=== PATIENT | female | born 1950 | race Hispanic/Latino ===

== ENCOUNTER 2020-11-05 13:18 | Inpatient (IN) | payer OTHER ==
[~2020-11-05] VITALS: Ht 160 cm; Wt 83.0 kg
[2020-11-05 13:47] LABS: BASOPHILS % (AUTO) 0.5 % (0.0-5.0); EOSINOPHILS % (AUTO) 1.4 % (0.0-8.0); HEMATOCRIT 25.5 % (36-48); LYMPHOCYTES % (AUTO) 12.5 % (21.0-51.0); MEAN CORPUSCULAR HEMOGLOBIN 28.4 pg (27.0-33.0); MEAN CORPUSCULAR HGB CONC 33.3 g/dL (32.0-36.0); MEAN CORPUSCULAR VOLUME 85.3 fL (79-99); MONOCYTES % (AUTO) 4.6 % (3.0-13.0); NEUTROPHILS % (AUTO) 80.7 % (40.0-77.0); PLATELET COUNT (AUTO) 289 K/uL (130-400); RED BLOOD CELL COUNT(AUTO) 2.99 MIL/uL (4.00-5.50); RED CELL DISTRIBUTION WIDTH 14.3 % (11.0-15.5); WHITE BLOOD COUNT (AUTO) 7.9 K/uL (4.8-10.8)
[2020-11-05 14:13] LABS: APPEARANCE,URINE Clear (CLEAR); BILIRUBIN,URINE Negative (NEGATIVE); COLOR,URINE Yellow (YELLOW); GLUCOSE, URINE (UA) TRACE mg/dL (NEGATIVE); KETONES,URINE Negative (NEGATIVE); LEUKOCYTE ESTERASE ,URINE Negative (NEGATIVE); NITRATE,URINE Negative (NEGATIVE); OCCULT BLOOD,URINE Negative (NEGATIVE); PROTEIN,URINE 300 mg/dL (NEGATIVE); UROBILINOGEN,URINE 0.2 mg/dL (0.2-1.0)
[2020-11-05 14:16] LABS: CREATININE 2.5 mg/dL (0.5-1.5); POTASSIUM 4.3 mmol/L (3.5-5.1)
[2020-11-05 14:20] LABS: INR 1.08 (0.85-1.15); PROTHROMBIN TIME 11.7 SEC (9.6-11.6)
[2020-11-05 14:21] LABS: ALBUMIN 2.9 g/dL (3.5-5.0); BILIRUBIN,TOTAL 0.2 mg/dL (0.2-1.0); PARTIAL THROMBOPLASTIN TIME 27.3 SEC (26.3-35.5); TOTAL PROTEIN, SERUM 6.6 g/dL (6.0-8.3)
[2020-11-05 14:23] LABS: BACTERIA,URINE Rare /HPF (None Seen); MUCUS,URINE Few LPF (None Seen); RBC,URINE 0-1 /HPF (0-1); SQUAMOUS EPITHELIAL CELL,UR Few /HPF (0-2)
[2020-11-05] MEDS ORDERED: MECLIZINE HCL 25 MG TABLET ONE (14:25)
[2020-11-05] MEDS ORDERED: CEFTRIAXONE 1G VIAL ONE (15:14)
[2020-11-05] MEDS ORDERED: AZITHROMYCIN 250 MG TABLET PO ONE (15:14)
[2020-11-05] MEDS ORDERED: LORAZEPAM 2 MG/ML 1 ML VIAL ONE (15:15)
[2020-11-05 15:33] LABS: ABG BASE EXCESS -5.6 mmol/L (-2.0-3.0); ABG HCO3 18.8 mmol/L (21.0-28.0); ABG OXYGEN SATURATION 86.4 % (95.0-99.0); ABG PCO2 34 mmHg (32-45)
[2020-11-06 05:05] LABS: BASOPHILS % (AUTO) 0.5 % (0.0-5.0); EOSINOPHILS % (AUTO) 2.3 % (0.0-8.0); HEMATOCRIT 23.3 % (36-48); LYMPHOCYTES % (AUTO) 18.7 % (21.0-51.0); MEAN CORPUSCULAR HEMOGLOBIN 27.9 pg (27.0-33.0); MEAN CORPUSCULAR HGB CONC 32.6 g/dL (32.0-36.0); MEAN CORPUSCULAR VOLUME 85.7 fL (79-99); MONOCYTES % (AUTO) 8.1 % (3.0-13.0); NEUTROPHILS % (AUTO) 70.1 % (40.0-77.0); PLATELET COUNT (AUTO) 299 K/uL (130-400); RED BLOOD CELL COUNT(AUTO) 2.72 MIL/uL (4.00-5.50); RED CELL DISTRIBUTION WIDTH 14.3 % (11.0-15.5); WHITE BLOOD COUNT (AUTO) 6.5 K/uL (4.8-10.8)
[2020-11-06 05:32] LABS: % IRON SATURATION 12.7 % (22-44)
[2020-11-06 06:07] LABS: CARBON DIOXIDE 23 mmol/L (21-32); CHLORIDE 106 mmol/L (101-111); CREATININE 2.5 mg/dL (0.5-1.5); GLOMERULAR FILTR. RATE CALC 20 mL/min (>60); GLUCOSE,RANDOM 181 mg/dL (70-105); POTASSIUM 3.8 mmol/L (3.5-5.1); SODIUM SERUM 140 mmol/L (136-145); UREA NITROGEN, BLOOD 47 mg/dL (7-18)
[2020-11-06] MEDS ORDERED: FAMOTIDINE 20MG VIAL IV ONE (08:29)
[2020-11-06] MEDS ORDERED: PANTOPRAZOLE 40 MG/VIAL IVP SCH (09:00)
[2020-11-06] MEDS ORDERED: FAMOTIDINE 20MG VIAL IV SCH (09:00)
[2020-11-06] MEDS ORDERED: PANTOPRAZOLE 40 MG/VIAL ONE (10:12)
[2020-11-06] MEDS ORDERED: HYDRALAZINE 20MG/ML VIAL IV PRN (10:30)
[2020-11-06] MEDS ORDERED: FUROSEMIDE 40MG VIAL ONE (10:45)
[2020-11-06] MEDS ORDERED: FUROSEMIDE 40MG VIAL IV SCH ×2 (10:45→15:00)
[2020-11-06] MEDS ORDERED: NICARDIPINE 25MG INJ IV ONE (10:55)
[2020-11-06 11:04] LABS: BASOPHILS % (AUTO) 0.6 % (0.0-5.0); EOSINOPHILS % (AUTO) 2.5 % (0.0-8.0); HEMATOCRIT 31.6 % (36-48); LYMPHOCYTES % (AUTO) 13.9 % (21.0-51.0); MEAN CORPUSCULAR HEMOGLOBIN 27.7 pg (27.0-33.0); MEAN CORPUSCULAR VOLUME 86.8 fL (79-99); MONOCYTES % (AUTO) 5.4 % (3.0-13.0); NEUTROPHILS % (AUTO) 76.6 % (40.0-77.0); PLATELET COUNT (AUTO) 374 K/uL (130-400); RED BLOOD CELL COUNT(AUTO) 3.64 MIL/uL (4.00-5.50); RED CELL DISTRIBUTION WIDTH 14.3 % (11.0-15.5); WHITE BLOOD COUNT (AUTO) 8.8 K/uL (4.8-10.8)
[2020-11-06] MEDS ORDERED: MORPHINE 4 MG SYG ONE (11:11)
[2020-11-06] MEDS ORDERED: MIDAZOLAM HCL 1 MG/ML 2ML VIAL ONE (11:11)
[2020-11-06 11:13] LABS: CREATININE 2.4 mg/dL (0.5-1.5); POTASSIUM 4.5 mmol/L (3.5-5.1)
[2020-11-06 11:17] LABS: BILIRUBIN,TOTAL 0.2 mg/dL (0.2-1.0); TOTAL PROTEIN, SERUM 7.3 g/dL (6.0-8.3)
[2020-11-06] MEDS ORDERED: FENTANYL CITRATE PF 0.05 MG/ML 1,000 MCG in 0.9%NACL 100ML 100 ML IVPB SCH (11:17)
[2020-11-06] MEDS ORDERED: PROPOFOL 1000 MG/100 ML 100 ML IV STA (11:17)
[2020-11-06] MEDS ORDERED: PROPOFOL 1000 MG/100 ML 100 ML IV ONE ×4 (11:24→22:35)
[2020-11-06] MEDS ORDERED: NICARDIPINE 25MG INJ 50 MG in 0.9% NACL 250ML 230 ML IV SCH (11:30)
[2020-11-06] MEDS ORDERED: FENTANYL 2500MCG+NS 250ML 250 ML IV ONE (11:38)
[2020-11-06] MEDS ORDERED: CEFEPIME HCL 2 GM VIAL IVP SCH (11:45)
[2020-11-06] MEDS ORDERED: PHARMACY COMMUNICATION MISC SCH (11:45)
[2020-11-06] MEDS: LINEZOLID 600 MG/ISO-OSM 300 ML IV SCH ×2 (11:45→23:45)
[2020-11-06] MEDS ORDERED: NOREPINEPHRINE BITARTRATE 1 MG/1 ML ML IV ONE (11:53)
[2020-11-06] MEDS ORDERED: 0.9% NACL 250ML 250 ML IV ONE (11:54)
[2020-11-06] MEDS ORDERED: NOREPINEPHRIN 4MG/NS 250ML 250 ML IV SCH (12:00)
[2020-11-06 12:23] LABS: ABG BASE EXCESS -8.2 mmol/L (-2.0-3.0); ABG HCO3 19.4 mmol/L (21.0-28.0); ABG OXYGEN SATURATION 93.9 % (95.0-99.0); ABG PCO2 48 mmHg (32-45)
[2020-11-06 14:00] LABS: ABG BASE EXCESS -7.3 mmol/L (-2.0-3.0); ABG HCO3 18.7 mmol/L (21.0-28.0); ABG OXYGEN SATURATION 99.3 % (95.0-99.0); ABG PCO2 40 mmHg (32-45)
[2020-11-06] MEDS ORDERED: CEFEPIME HCL 2 GM VIAL ONE (14:14)
[2020-11-06] MEDS ORDERED: CEFTRIAXONE 1G VIAL IVP SCH (15:00)
[2020-11-06] MEDS: AZITHROMYCIN 500MG+NS 250ML 250 ML IV SCH (15:00)
[2020-11-06] MEDS: ZOSYN 3.375GM+NS 50ML 50 ML IV SCH (15:00)
[2020-11-06] MEDS ORDERED: ZOSYN 3.375GM+NS 50ML 50 ML IV ONE (16:01)
[2020-11-06 17:50] LABS: HEMOGLOBIN A1C 8.2 % (4.0-6.0)
[2020-11-06] MEDS: ATORVASTATIN 20 MG TABLET GT SCH (21:00)
[2020-11-06] MEDS ORDERED: ATORVASTATIN 20 MG TABLET ONE (23:49)
[2020-11-07] MEDS ORDERED: PROPOFOL 1000 MG/100 ML 100 ML IV ONE ×7 (01:43→23:44)
[2020-11-07] MEDS: ZOSYN 3.375GM+NS 50ML 50 ML IV SCH ×2 (03:00→15:00)
[2020-11-07 05:07] LABS: ABG BASE EXCESS -3.1 mmol/L (-2.0-3.0); ABG HCO3 19.7 mmol/L (21.0-28.0); ABG OXYGEN SATURATION 99.5 % (95.0-99.0); ABG PCO2 30 mmHg (32-45)
[2020-11-07 07:04] LABS: BASOPHILS % (AUTO) 0.5 % (0.0-5.0); EOSINOPHILS % (AUTO) 3.2 % (0.0-8.0); HEMATOCRIT 23.5 % (36-48); MEAN CORPUSCULAR HEMOGLOBIN 28.7 pg (27.0-33.0); MEAN CORPUSCULAR HGB CONC 33.2 g/dL (32.0-36.0); MEAN CORPUSCULAR VOLUME 86.4 fL (79-99); MONOCYTES % (AUTO) 7.6 % (3.0-13.0); NEUTROPHILS % (AUTO) 70.3 % (40.0-77.0); PLATELET COUNT (AUTO) 300 K/uL (130-400); RED BLOOD CELL COUNT(AUTO) 2.72 MIL/uL (4.00-5.50); RED CELL DISTRIBUTION WIDTH 14.4 % (11.0-15.5); WHITE BLOOD COUNT (AUTO) 8.6 K/uL (4.8-10.8)
[2020-11-07 07:24] LABS: ALBUMIN 2.3 g/dL (3.5-5.0); BILIRUBIN,TOTAL 0.2 mg/dL (0.2-1.0); CREATININE 2.5 mg/dL (0.5-1.5); POTASSIUM 3.8 mmol/L (3.5-5.1); TOTAL PROTEIN, SERUM 5.5 g/dL (6.0-8.3)
[2020-11-07] MEDS: ASPIRIN 81MG CHEW TAB PO SCH (09:00)
[2020-11-07] MEDS ORDERED: FUROSEMIDE 20MG VIAL IV SCH (10:30)
[2020-11-07] MEDS ORDERED: ASPIRIN 81MG CHEW TAB ONE (11:39)
[2020-11-07] MEDS: LINEZOLID 600 MG/ISO-OSM 300 ML IV SCH ×2 (11:45→23:45)
[2020-11-07] MEDS: AZITHROMYCIN 500MG+NS 250ML 250 ML IV SCH (15:00)
[2020-11-07] MEDS ORDERED: ZOSYN 3.375GM+NS 50ML 50 ML IV ONE (15:01)
[2020-11-07] MEDS ORDERED: AZITHROMYCIN 500MG+NS 250ML 250 ML IV ONE (15:02)
[2020-11-07] MEDS ORDERED: DEXMEDETOMIDINE HCL 400 MCG in 0.9%NACL 100ML 100 ML IV SCH (20:30)
[2020-11-07] MEDS ORDERED: PHARMACY COMMUNICATION MISC SCH (20:30)
[2020-11-07] MEDS: ATORVASTATIN 20 MG TABLET GT SCH (21:00)
[2020-11-07] MEDS ORDERED: BUMETANIDE 2.5MG/10ML VIAL 80 ML IV SCH (21:00)
[2020-11-07] MEDS ORDERED: FENTANYL 2500MCG+NS 250ML 250 ML IV SCH (21:00)
[2020-11-07] MEDS ORDERED: FUROSEMIDE 20MG VIAL ONE (21:35)
[2020-11-07] MEDS ORDERED: ATORVASTATIN 20 MG TABLET ONE (21:35)
[2020-11-07] MEDS ORDERED: NOREPINEPHRIN 4MG/NS 250ML 250 ML IV ONE (22:07)
[2020-11-08] VITALS (16 sets, daily range): BP systolic 141–175; BP diastolic 51–74
[2020-11-08] MEDS ORDERED: FENTANYL 2500MCG+NS 250ML 250 ML IV ONE (00:37)
[2020-11-08] MEDS: ZOSYN 3.375GM+NS 50ML 50 ML IV SCH ×2 (03:00→15:00)
[2020-11-08] MEDS ORDERED: ZOSYN 3.375GM+NS 50ML 50 ML IV ONE (03:10)
[2020-11-08] MEDS ORDERED: PROPOFOL 1000 MG/100 ML 100 ML IV ONE ×4 (03:12→14:05)
[2020-11-08 05:25] LABS: ABG BASE EXCESS -4.4 mmol/L (-2.0-3.0); ABG HCO3 20.1 mmol/L (21.0-28.0); ABG OXYGEN SATURATION 98.5 % (95.0-99.0); ABG PCO2 36 mmHg (32-45)
[2020-11-08 06:35] LABS: BASOPHILS % (AUTO) 0.4 % (0.0-5.0); HEMATOCRIT 25.1 % (36-48); MEAN CORPUSCULAR HEMOGLOBIN 28.4 pg (27.0-33.0); MEAN CORPUSCULAR HGB CONC 32.7 g/dL (32.0-36.0); MEAN CORPUSCULAR VOLUME 86.9 fL (79-99); MONOCYTES % (AUTO) 7.3 % (3.0-13.0); PLATELET COUNT (AUTO) 319 K/uL (130-400); RED BLOOD CELL COUNT(AUTO) 2.89 MIL/uL (4.00-5.50); RED CELL DISTRIBUTION WIDTH 14.4 % (11.0-15.5); WHITE BLOOD COUNT (AUTO) 9.7 K/uL (4.8-10.8)
[2020-11-08 06:51] LABS: CREATININE 2.5 mg/dL (0.5-1.5); MAGNESIUM 1.9 mg/dL (1.80-2.40); POTASSIUM 3.8 mmol/L (3.5-5.1)
[2020-11-08] MEDS ORDERED: MAGNESIUM 2GM PREMIX 50ML 50 ML IV PRN (07:30)
[2020-11-08] MEDS ORDERED: POTASSIUM CHLORIDE 10MEQ/100ML 100 ML IV PRN (08:45)
[2020-11-08] MEDS: PANTOPRAZOLE 40 MG/VIAL IVP SCH (09:00)
[2020-11-08] MEDS: ASPIRIN 81MG CHEW TAB PO SCH (09:00)
[2020-11-08] MEDS ORDERED: FAMOTIDINE 20MG VIAL IV SCH (09:00)
[2020-11-08] MEDS ORDERED: LABETALOL 20MG SYG IV ONE (10:28)
[2020-11-08] MEDS: INSULIN HUMULIN R 100 UNIT/ML 3ML SQ SCH ×3 (11:38→21:00)
[2020-11-08] MEDS: LINEZOLID 600 MG/ISO-OSM 300 ML IV SCH (11:45)
[2020-11-08] MEDS: AZITHROMYCIN 500MG+NS 250ML 250 ML IV SCH (15:00)
[2020-11-08] MEDS: PROPOFOL 1000 MG/100 ML 100 ML IV SCH ×2 (17:31→21:00)
[2020-11-08] MEDS: LABETALOL 20MG VIAL IV PRN (17:58)
[2020-11-09] VITALS (25 sets, daily range): BP systolic 133–209; BP diastolic 43–111
[2020-11-09] MEDS: LINEZOLID 600 MG/ISO-OSM 300 ML IV SCH
[2020-11-09] MEDS: ZOSYN 3.375GM+NS 50ML 50 ML IV SCH (03:09)
[2020-11-09] MEDS: PROPOFOL 1000 MG/100 ML 100 ML IV SCH ×2 (03:13→06:32)
[2020-11-09 03:48] LABS: BASOPHILS % (AUTO) 0.2 % (0.0-5.0); EOSINOPHILS % (AUTO) 3.9 % (0.0-8.0); HEMATOCRIT 26.7 % (36-48); LYMPHOCYTES % (AUTO) 13.5 % (21.0-51.0); MEAN CORPUSCULAR HEMOGLOBIN 27.9 pg (27.0-33.0); MEAN CORPUSCULAR HGB CONC 32.6 g/dL (32.0-36.0); MEAN CORPUSCULAR VOLUME 85.6 fL (79-99); MONOCYTES % (AUTO) 7.8 % (3.0-13.0); NEUTROPHILS % (AUTO) 74.4 % (40.0-77.0); PLATELET COUNT (AUTO) 315 K/uL (130-400); RED BLOOD CELL COUNT(AUTO) 3.12 MIL/uL (4.00-5.50); RED CELL DISTRIBUTION WIDTH 14.4 % (11.0-15.5); WHITE BLOOD COUNT (AUTO) 8.5 K/uL (4.8-10.8)
[2020-11-09 04:01] LABS: CREATININE 2.5 mg/dL (0.5-1.5); MAGNESIUM 2.2 mg/dL (1.80-2.40); PHOSPHORUS 5.7 mg/dL (2.5-4.9); POTASSIUM 3.4 mmol/L (3.5-5.1)
[2020-11-09] MEDS: INSULIN HUMULIN R 100 UNIT/ML 3ML SQ SCH ×3 (06:31→21:36)
[2020-11-09] MEDS ORDERED: INSULIN GLARGINE 100 UNITS/ML 10 ML VIAL SQ ONE ×2 (09:00→14:00)
[2020-11-09] MEDS ORDERED: INSULIN GLARGINE 100 UNITS/ML 10 ML VIAL SQ SCH (09:00)
[2020-11-09] MEDS: PANTOPRAZOLE 40 MG/VIAL IVP SCH (09:15)
[2020-11-09] MEDS: LABETALOL 20MG VIAL IV PRN (09:16)
[2020-11-09] MEDS: CEFTRIAXONE 1G VIAL IVP SCH (10:02)
[2020-11-09] MEDS ORDERED: NICARDIPINE 25MG INJ 25 MG in 0.9% NACL 250ML 240 ML IV SCH ×2 (11:15→12:15)
[2020-11-09] MEDS: POTASSIUM CHLORIDE 10MEQ/100ML 100 ML IV PRN (11:16)
[2020-11-09] MEDS ORDERED: NICARDIPINE 25MG INJ 100 MG in 0.9%NACL 100ML 60 ML IV SCH (11:45)
[2020-11-09] MEDS ORDERED: NICARDIPINE 25MG INJ IV ONE (11:46)
[2020-11-09] MEDS ORDERED: 0.9% NACL 250ML 250 ML IV ONE (11:48)
[2020-11-09] MEDS: ASPIRIN 81MG CHEW TAB PO SCH (12:28)
[2020-11-09] MEDS: AZITHROMYCIN 500MG+NS 250ML 250 ML IV SCH (15:00)
[2020-11-09 17:12] LABS: APPEARANCE,URINE CLEAR (CLEAR); BILIRUBIN,URINE NEGATIVE (NEGATIVE); COLOR,URINE YELLOW (YELLOW); GLUCOSE, URINE (UA) 100 mg/dL (NEGATIVE); KETONES,URINE NEGATIVE (NEGATIVE); LEUKOCYTE ESTERASE ,URINE NEGATIVE (NEGATIVE); NITRATE,URINE NEGATIVE (NEGATIVE); OCCULT BLOOD,URINE NEGATIVE (NEGATIVE); PROTEIN,URINE >=300 mg/dL (NEGATIVE); UROBILINOGEN,URINE 0.2 mg/dL (0.2-1.0)
[2020-11-09 17:15] LABS: BACTERIA,URINE Few /HPF (None Seen); RBC,URINE 0-1 /HPF (0-1)
[2020-11-09 17:16] LABS: SQUAMOUS EPITHELIAL CELL,UR Rare /HPF (0-2)
[2020-11-09] MEDS: ATORVASTATIN 20 MG TABLET GT SCH ×2 (21:00)
[2020-11-09] MEDS: FUROSEMIDE 40MG VIAL IV SCH (21:30)
[2020-11-10] VITALS (23 sets, daily range): BP systolic 127–189; BP diastolic 53–104
[2020-11-10 03:37] LABS: BASOPHILS % (AUTO) 0.2 % (0.0-5.0); EOSINOPHILS % (AUTO) 1.4 % (0.0-8.0); HEMATOCRIT 26.3 % (36-48); LYMPHOCYTES % (AUTO) 10.4 % (21.0-51.0); MEAN CORPUSCULAR HEMOGLOBIN 27.6 pg (27.0-33.0); MEAN CORPUSCULAR HGB CONC 32.3 g/dL (32.0-36.0); MEAN CORPUSCULAR VOLUME 85.4 fL (79-99); MONOCYTES % (AUTO) 7.4 % (3.0-13.0); NEUTROPHILS % (AUTO) 80.3 % (40.0-77.0); PLATELET COUNT (AUTO) 375 K/uL (130-400); RED BLOOD CELL COUNT(AUTO) 3.08 MIL/uL (4.00-5.50); RED CELL DISTRIBUTION WIDTH 14.3 % (11.0-15.5); WHITE BLOOD COUNT (AUTO) 9.8 K/uL (4.8-10.8)
[2020-11-10 03:44] LABS: ABG BASE EXCESS -0.4 mmol/L (-2.0-3.0); ABG HCO3 23.7 mmol/L (21.0-28.0); ABG PCO2 37 mmHg (32-45)
[2020-11-10 03:54] LABS: ALBUMIN 2.1 g/dL (3.5-5.0); BILIRUBIN,TOTAL 0.4 mg/dL (0.2-1.0); CREATININE 2.6 mg/dL (0.5-1.5); MAGNESIUM 2.7 mg/dL (1.80-2.40); PHOSPHORUS 6.1 mg/dL (2.5-4.9); POTASSIUM 3.3 mmol/L (3.5-5.1); TOTAL PROTEIN, SERUM 6.6 g/dL (6.0-8.3)
[2020-11-10] MEDS: POTASSIUM CHLORIDE 10MEQ/100ML 100 ML IV PRN (05:27)
[2020-11-10] MEDS ORDERED: LIDOCAINE HCL-MPF 1% 2ML VIAL ONE (05:33)
[2020-11-10] MEDS ORDERED: LIDOCAINE HCL-MPF 1% 2ML VIAL IV PRN (06:00)
[2020-11-10] MEDS: INSULIN HUMULIN R 100 UNIT/ML 3ML SQ SCH ×4 (06:51→21:24)
[2020-11-10] MEDS ORDERED: HYDRALAZINE 20MG/ML VIAL IV PRN (09:45)
[2020-11-10] MEDS: CEFTRIAXONE 1G VIAL IVP SCH (10:26)
[2020-11-10] MEDS: ASPIRIN 81MG CHEW TAB PO SCH (10:27)
[2020-11-10] MEDS: FUROSEMIDE 40MG VIAL IV SCH (10:27)
[2020-11-10] MEDS: PANTOPRAZOLE 40 MG TAB DR PO SCH (10:33)
[2020-11-10] MEDS: AZITHROMYCIN 500MG+NS 250ML 250 ML IV SCH (15:00)
[2020-11-10] MEDS ORDERED: CARV25TA PO (16:57)
[2020-11-10] MEDS ORDERED: INSREG SQ (16:57)
[2020-11-10] MEDS ORDERED: INSU100V12 SQ ×2 (16:57)
[2020-11-10] MEDS ORDERED: AEC81 PO (16:57)
[2020-11-10] MEDS ORDERED: NIMO30CA PO (16:57)
[2020-11-10] MEDS ORDERED: LOSA100T58 PO (16:57)
[2020-11-10] MEDS ORDERED: HYDR-4154 PO (16:57)
[2020-11-10] MEDS ORDERED: AMLODIPINE 5 MG TAB PO SCH (18:35)
[2020-11-10] MEDS ORDERED: ACETAMINOPHEN 500 MG TABLET PO PRN (20:45)
[2020-11-10] MEDS ORDERED: TEMAZEPAM 7.5 MG CAPSULE PO PRN (20:45)
[2020-11-10] MEDS: CARVEDILOL 6.25 MG TABLET PO SCH (21:18)
[2020-11-10] MEDS: ATORVASTATIN 20 MG TABLET GT SCH (21:18)
[2020-11-11] VITALS (28 sets, daily range): BP systolic 122–203; BP diastolic 43–90
[2020-11-11 04:19] LABS: CREATININE 2.3 mg/dL (0.5-1.5); MAGNESIUM 2.1 mg/dL (1.80-2.40); POTASSIUM 3.2 mmol/L (3.5-5.1)
[2020-11-11] MEDS: POTASSIUM CHLORIDE 10MEQ/100ML 100 ML IV PRN (04:40)
[2020-11-11 05:22] LABS: BASOPHILS % (AUTO) 0.2 % (0.0-5.0); EOSINOPHILS % (AUTO) 2.2 % (0.0-8.0); HEMATOCRIT 27.1 % (36-48); LYMPHOCYTES % (AUTO) 13.2 % (21.0-51.0); MEAN CORPUSCULAR HEMOGLOBIN 27.7 pg (27.0-33.0); MEAN CORPUSCULAR HGB CONC 32.1 g/dL (32.0-36.0); MEAN CORPUSCULAR VOLUME 86.3 fL (79-99); MONOCYTES % (AUTO) 6.7 % (3.0-13.0); NEUTROPHILS % (AUTO) 77.3 % (40.0-77.0); PLATELET COUNT (AUTO) 392 K/uL (130-400); RED BLOOD CELL COUNT(AUTO) 3.14 MIL/uL (4.00-5.50); RED CELL DISTRIBUTION WIDTH 14.4 % (11.0-15.5); WHITE BLOOD COUNT (AUTO) 8.5 K/uL (4.8-10.8)
[2020-11-11] MEDS: INSULIN HUMULIN R 100 UNIT/ML 3ML SQ SCH ×4 (06:54→20:29)
[2020-11-11] MEDS: PANTOPRAZOLE 40 MG TAB DR PO SCH (09:20)
[2020-11-11] MEDS: ASPIRIN 81MG CHEW TAB PO SCH (09:21)
[2020-11-11] MEDS: CARVEDILOL 6.25 MG TABLET PO SCH (09:25)
[2020-11-11] MEDS: LOSARTAN 50 MG TABLET PO SCH (09:26)
[2020-11-11] MEDS: AMLODIPINE 5 MG TAB PO SCH (09:26)
[2020-11-11] MEDS: CEFTRIAXONE 1G VIAL IVP SCH (09:26)
[2020-11-11] MEDS ORDERED: LIDOCAINE HCL-MPF 1% 2ML VIAL IV PRN (11:15)
[2020-11-11] MEDS ORDERED: POTASSIUM CHLORIDE 20MEQ/100ML 100 ML IV PRN (11:15)
[2020-11-11] MEDS ORDERED: POTASSIUM CHLORIDE 10% ELIXIR 20 MEQ/15 ML UDCUP PO PRN (11:15)
[2020-11-11] MEDS: LABETALOL 20MG VIAL IV PRN ×2 (16:01→17:26)
[2020-11-11] MEDS: ATORVASTATIN 20 MG TABLET GT SCH (20:25)
[2020-11-11] MEDS: CARVEDILOL 25 MG TABLET PO SCH (20:26)
[2020-11-11] MEDS ORDERED: CARVEDILOL 6.25 MG TABLET PO SCH (21:00)
[2020-11-12] VITALS (10 sets, daily range): BP systolic 100–187; BP diastolic 43–96
[2020-11-12 03:51] LABS: ALBUMIN 2.1 g/dL (3.5-5.0); BILIRUBIN,TOTAL 0.3 mg/dL (0.2-1.0); CREATININE 1.9 mg/dL (0.5-1.5); POTASSIUM 3.3 mmol/L (3.5-5.1); TOTAL PROTEIN, SERUM 6.4 g/dL (6.0-8.3)
[2020-11-12] MEDS: KCL 20 MEQ ERTAB PO PRN ×3 (05:24→13:57)
[2020-11-12] MEDS: INSULIN HUMULIN R 100 UNIT/ML 3ML SQ SCH ×4 (06:15→20:06)
[2020-11-12 06:27] LABS: BASOPHILS % (AUTO) 0.4 % (0.0-5.0); LYMPHOCYTES % (AUTO) 14.5 % (21.0-51.0); MEAN CORPUSCULAR HEMOGLOBIN 27.3 pg (27.0-33.0); MEAN CORPUSCULAR HGB CONC 31.2 g/dL (32.0-36.0); MEAN CORPUSCULAR VOLUME 87.5 fL (79-99); MONOCYTES % (AUTO) 6.5 % (3.0-13.0); NEUTROPHILS % (AUTO) 72.3 % (40.0-77.0); PLATELET COUNT (AUTO) 395 K/uL (130-400); RED BLOOD CELL COUNT(AUTO) 2.97 MIL/uL (4.00-5.50); RED CELL DISTRIBUTION WIDTH 13.8 % (11.0-15.5); WHITE BLOOD COUNT (AUTO) 9.5 K/uL (4.8-10.8)
[2020-11-12] MEDS: LOSARTAN 50 MG TABLET PO SCH (09:00)
[2020-11-12] MEDS: ASPIRIN 81MG CHEW TAB PO SCH (09:00)
[2020-11-12] MEDS: AMLODIPINE 5 MG TAB PO SCH (09:33)
[2020-11-12] MEDS: PANTOPRAZOLE 40 MG TAB DR PO SCH (09:34)
[2020-11-12] MEDS: CARVEDILOL 25 MG TABLET PO SCH (09:34)
[2020-11-12] MEDS: CEFDINIR 250MG/5ML 60ML BOTTLE PO SCH ×2 (12:51→20:03)
[2020-11-12] MEDS ORDERED: MINO2.5T3 PO (16:43)
[2020-11-12] MEDS: CARVEDILOL 12.5 MG TABLET PO SCH (19:49)
[2020-11-12] MEDS: ATORVASTATIN 20 MG TABLET GT SCH (19:50)
[2020-11-12] MEDS ORDERED: METOCLOPRAMIDE 10 MG/2 ML VIAL IVP SCH (23:30)
[2020-11-12] MEDS ORDERED: METOCLOPRAMIDE 10 MG/2 ML VIAL ONE (23:33)
[2020-11-12] MEDS: INSULIN GLARGINE 100 UNITS/ML 10 ML VIAL SQ SCH (23:52)
[2020-11-13 00:05] VITALS: BP 139/70
[2020-11-13 04:03] VITALS: BP 107/42
[2020-11-13] MEDS ORDERED: ONDANSETRON 4MG INJ IVP PRN (05:15)
[2020-11-13 05:50] LABS: BASOPHILS % (AUTO) 0.1 % (0.0-5.0); EOSINOPHILS % (AUTO) 2.7 % (0.0-8.0); HEMATOCRIT 26.4 % (36-48); LYMPHOCYTES % (AUTO) 4.5 % (21.0-51.0); MEAN CORPUSCULAR HEMOGLOBIN 27.6 pg (27.0-33.0); MEAN CORPUSCULAR HGB CONC 32.6 g/dL (32.0-36.0); MEAN CORPUSCULAR VOLUME 84.6 fL (79-99); MONOCYTES % (AUTO) 4.4 % (3.0-13.0); NEUTROPHILS % (AUTO) 87.9 % (40.0-77.0); PLATELET COUNT (AUTO) 371 K/uL (130-400); RED BLOOD CELL COUNT(AUTO) 3.12 MIL/uL (4.00-5.50); RED CELL DISTRIBUTION WIDTH 13.5 % (11.0-15.5); WHITE BLOOD COUNT (AUTO) 11.5 K/uL (4.8-10.8)
[2020-11-13 06:03] LABS: ALBUMIN 2.2 g/dL (3.5-5.0); BILIRUBIN,TOTAL 0.3 mg/dL (0.2-1.0); CREATININE 1.9 mg/dL (0.5-1.5); TOTAL PROTEIN, SERUM 6.3 g/dL (6.0-8.3)
[2020-11-13] MEDS: PANTOPRAZOLE 40 MG TAB DR PO SCH (06:53)
[2020-11-13] MEDS: INSULIN HUMULIN R 100 UNIT/ML 3ML SQ SCH ×7 (07:04→21:00)
[2020-11-13 08:00] VITALS: BP 178/76
[2020-11-13] MEDS: ASPIRIN 81MG CHEW TAB PO SCH (08:31)
[2020-11-13] MEDS: AMLODIPINE 5 MG TAB PO SCH (08:31)
[2020-11-13] MEDS: LOSARTAN 50 MG TABLET PO SCH (08:31)
[2020-11-13] MEDS: CARVEDILOL 12.5 MG TABLET PO SCH ×2 (08:32→20:58)
[2020-11-13] MEDS: CEFDINIR 250MG/5ML 60ML BOTTLE PO SCH ×2 (08:38→21:04)
[2020-11-13 17:44] VITALS: BP 111/56
[2020-11-13 20:09] VITALS: BP 172/72
[2020-11-13] MEDS: ATORVASTATIN 20 MG TABLET GT SCH (20:58)
[2020-11-13] MEDS: INSULIN GLARGINE 100 UNITS/ML 10 ML VIAL SQ SCH (21:02)
[2020-11-14 00:05] VITALS: BP 105/44
[2020-11-14 03:55] VITALS: BP 158/68
[2020-11-14 05:39] LABS: ALBUMIN 2.1 g/dL (3.5-5.0); BILIRUBIN,TOTAL 0.4 mg/dL (0.2-1.0); CREATININE 1.8 mg/dL (0.5-1.5); POTASSIUM 3.1 mmol/L (3.5-5.1)
[2020-11-14] MEDS: INSULIN HUMULIN R 100 UNIT/ML 3ML SQ SCH ×6 (06:10→16:36)
[2020-11-14] MEDS: PANTOPRAZOLE 40 MG TAB DR PO SCH (06:10)
[2020-11-14 07:00] VITALS: BP 143/75
[2020-11-14] MEDS ORDERED: LOSARTAN 50 MG TABLET PO SCH (09:00)
[2020-11-14] MEDS: AMLODIPINE 5 MG TAB PO SCH (09:36)
[2020-11-14] MEDS: KCL 20 MEQ ERTAB PO PRN ×3 (09:37→16:38)
[2020-11-14] MEDS: ASPIRIN 81MG CHEW TAB PO SCH (09:37)
[2020-11-14] MEDS: CARVEDILOL 12.5 MG TABLET PO SCH (09:38)
[2020-11-14] MEDS: CEFDINIR 250MG/5ML 60ML BOTTLE PO SCH (09:39)
[2020-11-14 11:00] VITALS: BP 139/79
[2020-11-14 15:00] VITALS: BP 158/68
[2020-11-14] MEDS ORDERED: LOSA50TA64 PO (16:14)
[2020-11-14] MEDS ORDERED: CARV12.511 PO (16:14)
[2020-11-14] MEDS ORDERED: ATOR20TA65 PO (16:14)
[2020-11-14] MEDS ORDERED: AMLO-258 PO (16:14)
[2020-11-14] MEDS ORDERED: CEFD300C3 PO (16:14)
[2020-11-14] MEDS ORDERED: NON-FORMULARY MEDICATION 1 EACH (Hydralazine HCl 50 MG) PO PRN (16:15)
[2020-11-14] MEDS ORDERED: HYDRALAZINE 25MG TABLET PO PRN (16:45)
[2020-11-14] MEDS ORDERED: INSULIN DETEMIR 30 UNIT SQ SCH (21:00)
[2020-11-14] MEDS ORDERED: INSULIN GLARGINE 100 UNITS/ML 10 ML VIAL SQ SCH (21:00)
[2020-11-15] MEDS ORDERED: ASPIRIN 81 MG EC TAB PO SCH (09:00)
[2020-11-15] MEDS ORDERED: INSULIN GLARGINE 100 UNITS/ML 10 ML VIAL SQ SCH (09:00)
[2020-11-15] MEDS ORDERED: NON-FORMULARY MEDICATION 1 EACH (Insulin Detemir (Levemir) 60 UNIT) SQ SCH (09:00)
[2021-03-25] MEDS ORDERED: FOLI1TAB61 PO (08:18)
[2021-03-26] MEDS ORDERED: ROSU5TAB12 PO (08:35)
[2021-03-26] MEDS ORDERED: LOSA50TA64 PO (08:35)
== END 2020-11-14 19:00 | disposition home or self-care (01) | DRG 208 ==
LOC: EDH 13:18 → EDHIP 18:00 → 2DH 11-08 08:09 → 4CH 11-12 05:57
PROVIDERS: ADMIT Family Medicine; ATTEND Family Medicine
PROC: 5A1945Z Respiratory Ventilation, 24-96 Consecutive Hours (ICD-10-PCS; principal; 2020-11-08)
PROC: 0BH17EZ Insertion of Endotracheal Airway into Trachea, Via Natural or Artificial Opening (ICD-10-PCS; 2020-11-08)
DX: J96.01 Acute respiratory failure with hypoxia (principal); J18.9 Pneumonia, unspecified organism; I21.4 Non-ST elevation (NSTEMI) myocardial infarction; I50.33 Acute on chronic diastolic (congestive) heart failure; I16.1 Hypertensive emergency; N17.9 Acute kidney failure, unspecified; K92.2 Gastrointestinal hemorrhage, unspecified; I13.0 Hypertensive heart and chronic kidney disease with heart failure and stage 1 through stage 4 chronic kidney disease, or unspecified chronic kidney disease; N18.4 Chronic kidney disease, stage 4 (severe); I24.8 Other forms of acute ischemic heart disease; E66.01 Morbid (severe) obesity due to excess calories; Z20.822 Contact with and (suspected) exposure to COVID-19; D50.9 Iron deficiency anemia, unspecified; E78.5 Hyperlipidemia, unspecified; E87.6 Hypokalemia; E11.22 Type 2 diabetes mellitus with diabetic chronic kidney disease; R53.81 Other malaise; I25.10 Atherosclerotic heart disease of native coronary artery without angina pectoris; Z68.35 Body mass index [BMI] 35.0-35.9, adult; Z79.899 Other long term (current) drug therapy; I25.2 Old myocardial infarction; Z79.82 Long term (current) use of aspirin; Z87.01 Personal history of pneumonia (recurrent); Z83.3 Family history of diabetes mellitus; Z82.49 Family history of ischemic heart disease and other diseases of the circulatory system
CPT/HCPCS: 31500; 36415; 36600; 70450; 71045; 76700; 76770; 80048; 80053; 81001; 82140; 82270; 82435; 82550; 82607; 82746; 82803; 82947; 82948; 83036; 83540; 83550; 83605; 83735; 83880; 84100; 84132; 84145; 84295; 84484; 85018; 85025; 85378; 85384; 85610; 85730; 86140; 86677; 86850; 86900; 86901; 87040; 87426; 87449; 87804; 92610; 93005; 93306; 93356; 93970; 94002; 94003; 97039; 99291; C9113; G0378; J0360; J0456; J0692; J0696; J1815; J1940; J2020; J2060; J2250; J2270; J2543; J2704; J2765; J3010; J3475; J3490; J7050; U0003

== ENCOUNTER 2020-12-13 17:50 | Inpatient (IN) | payer OTHER ==
[~2020-12-13] VITALS: Ht 160 cm; Wt 82.7 kg
[~2020-12-13 17:50] MED LIST: AEC81 PO; AMLO-258 PO; ATOR20TA65 PO; CARV12.511 PO; CEFD300C3 PO; HYDR-4154 PO; INSREG SQ; INSU100V12 SQ; LOSA50TA64 PO
[2020-12-13] MEDS ORDERED: ASPIRIN 325 MG TABLET ONE (18:05)
[2020-12-13] MEDS ORDERED: NITROGLYCERIN 0.4 MG SL TAB SL ONE (18:06)
[2020-12-13 18:07] LABS: ABG BASE EXCESS -4.3 mmol/L (-2.0-3.0); ABG HCO3 19.3 mmol/L (21.0-28.0); ABG OXYGEN SATURATION 95.8 % (95.0-99.0); ABG PCO2 31 mmHg (32-45)
[2020-12-13] MEDS ORDERED: LORAZEPAM 2 MG/ML 1 ML VIAL ONE (18:25)
[2020-12-13 18:38] LABS: APPEARANCE,URINE Clear (CLEAR); BILIRUBIN,URINE Negative (NEGATIVE); COLOR,URINE Yellow (YELLOW); GLUCOSE, URINE (UA) Negative (NEGATIVE); KETONES,URINE Negative (NEGATIVE); LEUKOCYTE ESTERASE ,URINE Trace (NEGATIVE); NITRATE,URINE Negative (NEGATIVE); OCCULT BLOOD,URINE Negative (NEGATIVE); PROTEIN,URINE 300 mg/dL (NEGATIVE); UROBILINOGEN,URINE 0.2 mg/dL (0.2-1.0)
[2020-12-13 18:40] LABS: BASOPHILS % (AUTO) 0.4 % (0.0-5.0); EOSINOPHILS % (AUTO) 1.3 % (0.0-8.0); HEMATOCRIT 29.9 % (36-48); LYMPHOCYTES % (AUTO) 10.6 % (21.0-51.0); MEAN CORPUSCULAR HEMOGLOBIN 27.6 pg (27.0-33.0); MEAN CORPUSCULAR HGB CONC 34.1 g/dL (32.0-36.0); PLATELET COUNT (AUTO) 358 K/uL (130-400); RED BLOOD CELL COUNT(AUTO) 3.69 MIL/uL (4.00-5.50); RED CELL DISTRIBUTION WIDTH 14.4 % (11.0-15.5)
[2020-12-13 18:52] LABS: INR 1.05 (0.85-1.15); PROTHROMBIN TIME 11.4 SEC (9.6-11.6)
[2020-12-13 18:53] LABS: PARTIAL THROMBOPLASTIN TIME 27.6 SEC (26.3-35.5)
[2020-12-13 18:58] LABS: MAGNESIUM 1.8 mg/dL (1.80-2.40); PHOSPHORUS 4.2 mg/dL (2.5-4.9)
[2020-12-13 19:07] LABS: CREATININE 1.7 mg/dL (0.5-1.5)
[2020-12-13 19:12] LABS: ALBUMIN 3.2 g/dL (3.5-5.0); BILIRUBIN,TOTAL 0.3 mg/dL (0.2-1.0); TOTAL PROTEIN, SERUM 7.4 g/dL (6.0-8.3)
[2020-12-13 19:15] LABS: BACTERIA,URINE Rare /HPF (None Seen); MUCUS,URINE Few LPF (None Seen); RBC,URINE 0-1 /HPF (0-1); SQUAMOUS EPITHELIAL CELL,UR Rare /HPF (0-2)
[2020-12-13] MEDS ORDERED: FUROSEMIDE 40MG VIAL ONE (19:50)
[2020-12-13] MEDS ORDERED: ZOSYN 3.375GM+NS 50ML 50 ML IV ONE (19:51)
[2020-12-13] MEDS ORDERED: GUAIFENESIN-DM 200/20 MG 10 ML PO PRN (22:15)
[2020-12-13] MEDS ORDERED: ONDANSETRON 4MG INJ IV PRN (22:15)
[2020-12-13] MEDS ORDERED: ACETAMINOPHEN 325 MG TAB PO PRN (22:15)
[2020-12-13] MEDS: FUROSEMIDE 40MG VIAL IV SCH (22:15)
[2020-12-13] MEDS ORDERED: MAG/ALUM/SIMETH 30 ML UDCUP PO PRN (22:15)
[2020-12-13] MEDS ORDERED: ALBUTEROL 0.083% 2.5 MG/3 ML INH IH PRN (22:15)
[2020-12-13] MEDS ORDERED: LACTULOSE 20 GM/30 ML UDCUP PO PRN (22:15)
[2020-12-13] MEDS ORDERED: DIPHENHYDRAMINE HCL 25 MG CAPSULE PO PRN (22:15)
[2020-12-13] MEDS ORDERED: NITROGLYCERIN 0.4 MG SL TAB SL PRN (22:15)
[2020-12-13] MEDS ORDERED: DiphenhydrAMINE HCL 50 MG/ML VIAL IV PRN (22:15)
[2020-12-14] VITALS (10 sets, daily range): BP systolic 106–220; BP diastolic 44–92
[2020-12-14] MEDS: FUROSEMIDE 40MG VIAL IV SCH ×3 (06:22→21:36)
[2020-12-14] MEDS: ACETAMINOPHEN 325 MG TAB PO PRN ×3 (06:22→19:59)
[2020-12-14] MEDS: CARVEDILOL 12.5 MG TABLET PO SCH ×2 (08:24→21:16)
[2020-12-14] MEDS: ASPIRIN 81 MG EC TAB PO SCH (08:24)
[2020-12-14] MEDS: ENOXAPARIN SODIUM 40 MG/0.4 ML SYRINGE SQ SCH (08:25)
[2020-12-14] MEDS: FAMOTIDINE 20MG VIAL IV SCH (08:25)
[2020-12-14] MEDS ORDERED: LABETALOL 20MG SYG IV PRN (11:15)
[2020-12-14] MEDS ORDERED: GLUCAGON 1MG KIT 1 MG ML IM PRN (11:30)
[2020-12-14] MEDS ORDERED: DEXTROSE 50%-WATER 50 ML DISP.SYRIN IV PRN (11:30)
[2020-12-14] MEDS: INSULIN HUMULIN R 100 UNIT/ML 3ML SQ SCH ×3 (12:11→21:12)
[2020-12-14] MEDS: AMLODIPINE 5 MG TAB PO SCH (18:08)
[2020-12-14] MEDS: LOSARTAN 50 MG TABLET PO SCH (18:08)
[2020-12-14] MEDS: HYDRALAZINE 25MG TABLET PO PRN (19:55)
[2020-12-15 03:15] VITALS: BP 98/55
[2020-12-15 05:46] LABS: BASOPHILS % (AUTO) 0.5 % (0.0-5.0); EOSINOPHILS % (AUTO) 2.7 % (0.0-8.0); LYMPHOCYTES % (AUTO) 21.1 % (21.0-51.0); MEAN CORPUSCULAR HEMOGLOBIN 27.5 pg (27.0-33.0); MEAN CORPUSCULAR HGB CONC 33.6 g/dL (32.0-36.0); MONOCYTES % (AUTO) 7.8 % (3.0-13.0); NEUTROPHILS % (AUTO) 67.6 % (40.0-77.0); PLATELET COUNT (AUTO) 281 K/uL (130-400); RED BLOOD CELL COUNT(AUTO) 3.05 MIL/uL (4.00-5.50); RED CELL DISTRIBUTION WIDTH 14.5 % (11.0-15.5); WHITE BLOOD COUNT (AUTO) 5.9 K/uL (4.8-10.8)
[2020-12-15 06:09] LABS: ALBUMIN 2.7 g/dL (3.5-5.0); BILIRUBIN,TOTAL 0.3 mg/dL (0.2-1.0); CREATININE 2.5 mg/dL (0.5-1.5); POTASSIUM 3.5 mmol/L (3.5-5.1)
[2020-12-15] MEDS: FUROSEMIDE 40MG VIAL IV SCH ×3 (06:36→21:40)
[2020-12-15] MEDS: INSULIN HUMULIN R 100 UNIT/ML 3ML SQ SCH ×4 (06:40→21:43)
[2020-12-15 08:00] VITALS: BP 146/61
[2020-12-15] MEDS: FAMOTIDINE 20MG VIAL IV SCH (08:18)
[2020-12-15] MEDS: ASPIRIN 81 MG EC TAB PO SCH (08:19)
[2020-12-15] MEDS: ENOXAPARIN SODIUM 40 MG/0.4 ML SYRINGE SQ SCH (08:19)
[2020-12-15] MEDS: LOSARTAN 50 MG TABLET PO SCH (08:19)
[2020-12-15] MEDS: AMLODIPINE 5 MG TAB PO SCH (08:20)
[2020-12-15] MEDS: CARVEDILOL 12.5 MG TABLET PO SCH ×2 (08:20→21:40)
[2020-12-15 12:00] VITALS: BP 154/55
[2020-12-15] MEDS: HYDRALAZINE 25MG TABLET PO PRN ×2 (12:51→19:35)
[2020-12-15 16:00] VITALS: BP 146/66
[2020-12-15 19:37] VITALS: BP 179/70
[2020-12-15] MEDS: ACETAMINOPHEN 325 MG TAB PO PRN (19:44)
[2020-12-15] MEDS ORDERED: DEXTROSE 50%-WATER 50 ML DISP.SYRIN IV PRN (20:30)
[2020-12-15] MEDS ORDERED: HYDROXYZINE 10 MG TABLET PO PRN (20:30)
[2020-12-15] MEDS ORDERED: GLUCAGON 1MG KIT 1 MG ML IM PRN (20:30)
[2020-12-15] MEDS ORDERED: INSULIN GLARGINE 100 UNITS/ML 10 ML VIAL SQ SCH (21:00)
[2020-12-15 23:58] VITALS: BP 117/51
[2020-12-16 04:00] VITALS: BP 103/50
[2020-12-16 05:18] LABS: BASOPHILS % (AUTO) 0.4 % (0.0-5.0); EOSINOPHILS % (AUTO) 3.1 % (0.0-8.0); HEMATOCRIT 25.8 % (36-48); MEAN CORPUSCULAR HEMOGLOBIN 26.9 pg (27.0-33.0); MEAN CORPUSCULAR HGB CONC 32.9 g/dL (32.0-36.0); MEAN CORPUSCULAR VOLUME 81.6 fL (79-99); MONOCYTES % (AUTO) 8.9 % (3.0-13.0); NEUTROPHILS % (AUTO) 60.2 % (40.0-77.0); PLATELET COUNT (AUTO) 239 K/uL (130-400); RED BLOOD CELL COUNT(AUTO) 3.16 MIL/uL (4.00-5.50); RED CELL DISTRIBUTION WIDTH 14.4 % (11.0-15.5); WHITE BLOOD COUNT (AUTO) 6.9 K/uL (4.8-10.8)
[2020-12-16 05:41] LABS: ALBUMIN 2.8 g/dL (3.5-5.0); BILIRUBIN,TOTAL 0.3 mg/dL (0.2-1.0); CREATININE 2.2 mg/dL (0.5-1.5); POTASSIUM 3.9 mmol/L (3.5-5.1); TOTAL PROTEIN, SERUM 6.2 g/dL (6.0-8.3)
[2020-12-16] MEDS: INSULIN HUMULIN R 100 UNIT/ML 3ML SQ SCH ×2 (06:14→13:30)
[2020-12-16] MEDS: FUROSEMIDE 40MG VIAL IV SCH (06:14)
[2020-12-16 08:00] VITALS: BP 178/79
[2020-12-16] MEDS: AMLODIPINE 5 MG TAB PO SCH (08:46)
[2020-12-16] MEDS: ASPIRIN 81 MG EC TAB PO SCH (08:46)
[2020-12-16] MEDS: FAMOTIDINE 20MG VIAL IV SCH (08:47)
[2020-12-16] MEDS: ENOXAPARIN SODIUM 40 MG/0.4 ML SYRINGE SQ SCH (08:47)
[2020-12-16] MEDS: CARVEDILOL 12.5 MG TABLET PO SCH (08:47)
[2020-12-16] MEDS: LOSARTAN 50 MG TABLET PO SCH (08:47)
[2020-12-16] MEDS ORDERED: HYDRALAZINE 25MG TABLET PO SCH (09:00)
[2020-12-16] MEDS ORDERED: HYDRALAZINE 20MG/ML VIAL ONE (11:49)
[2020-12-16] MEDS ORDERED: HYDR-4153 PO (11:50)
[2020-12-16 12:00] VITALS: BP 189/73
[2020-12-16] MEDS ORDERED: HYDRALAZINE 20MG/ML VIAL IV SCH (12:28)
[2021-03-25] MEDS ORDERED: FOLI1TAB61 PO (08:18)
[2021-03-26] MEDS ORDERED: ROSU5TAB12 PO (08:35)
[2021-03-26] MEDS ORDERED: LOSA50TA64 PO (08:35)
== END 2020-12-16 14:30 | disposition home or self-care (01) | DRG 291 ==
LOC: EDH 17:50 → EDHIP 22:13 → OBSVTOIN 22:13 → 4DH 12-14 00:02
PROVIDERS: ADMIT Family Medicine; ATTEND Family Medicine
PROC: 5A09357 Assistance with Respiratory Ventilation, Less than 24 Consecutive Hours, Continuous Positive Airway Pressure (ICD-10-PCS; principal; 2020-12-13)
DX: I11.0 Hypertensive heart disease with heart failure (principal); I50.31 Acute diastolic (congestive) heart failure; J96.01 Acute respiratory failure with hypoxia; E11.9 Type 2 diabetes mellitus without complications; Z20.822 Contact with and (suspected) exposure to COVID-19; E78.5 Hyperlipidemia, unspecified; R94.31 Abnormal electrocardiogram [ECG] [EKG]; Z86.16 Personal history of COVID-19; M19.90 Unspecified osteoarthritis, unspecified site; I25.2 Old myocardial infarction; Z91.19 Patient's noncompliance with other medical treatment and regimen; Z83.3 Family history of diabetes mellitus; Z82.49 Family history of ischemic heart disease and other diseases of the circulatory system; Z79.899 Other long term (current) drug therapy; Z79.4 Long term (current) use of insulin
CPT/HCPCS: 36415; 36600; 71045; 80053; 81001; 82435; 82803; 82947; 82948; 83605; 83735; 83880; 84100; 84132; 84295; 84484; 85018; 85025; 85610; 85730; 87040; 87426; 93005; 94660; G0378; J0360; J1650; J1815; J1940; J2060; J2405; J2543; J3490; U0003

== ENCOUNTER 2021-02-27 23:40 | Observation (INO) | payer OTHER ==
[~2021-02-27] VITALS: Ht 160 cm; Wt 83.0 kg
[~2021-02-27 23:40] MED LIST changes: -CEFD300C3 PO; +HYDR-4153 PO; -HYDR-4154 PO
[2021-02-28] VITALS (7 sets, daily range): BP systolic 101–138; BP diastolic 58–69
[2021-02-28] MEDS ORDERED: NITROGLYCERIN 1GM/1 INCH PACKET TD ONE (00:19)
[2021-02-28] MEDS ORDERED: ASPIRIN 81MG TAB.CHEW ONE (00:19)
[2021-02-28 00:35] LABS: INR 0.99 (0.85-1.15); PROTHROMBIN TIME 10.8 SEC (9.6-11.6)
[2021-02-28 00:36] LABS: CREATININE 2.4 mg/dL (0.5-1.5); POTASSIUM 4.3 mmol/L (3.5-5.1)
[2021-02-28 00:37] LABS: BASOPHILS % (AUTO) 0.4 % (0.0-5.0); EOSINOPHILS % (AUTO) 2.4 % (0.0-8.0); HEMATOCRIT 28.5 % (36-48); LYMPHOCYTES % (AUTO) 17.1 % (21.0-51.0); MEAN CORPUSCULAR HGB CONC 34.7 g/dL (32.0-36.0); MEAN CORPUSCULAR VOLUME 80.7 fL (79-99); MONOCYTES % (AUTO) 5.4 % (3.0-13.0); NEUTROPHILS % (AUTO) 74.3 % (40.0-77.0); PARTIAL THROMBOPLASTIN TIME 27.2 SEC (26.3-35.5); PLATELET COUNT (AUTO) 354 K/uL (130-400); RED BLOOD CELL COUNT(AUTO) 3.53 MIL/uL (4.00-5.50); RED CELL DISTRIBUTION WIDTH 14.7 % (11.0-15.5); WHITE BLOOD COUNT (AUTO) 9.8 K/uL (4.8-10.8)
[2021-02-28 00:41] LABS: ALBUMIN 3.3 g/dL (3.5-5.0); BILIRUBIN,TOTAL 0.2 mg/dL (0.2-1.0); TOTAL PROTEIN, SERUM 7.1 g/dL (6.0-8.3)
[2021-02-28 01:01] LABS: APPEARANCE,URINE Clear (CLEAR); BILIRUBIN,URINE Negative (NEGATIVE); COLOR,URINE Yellow (YELLOW); GLUCOSE, URINE (UA) TRACE mg/dL (NEGATIVE); KETONES,URINE Negative (NEGATIVE); LEUKOCYTE ESTERASE ,URINE Trace (NEGATIVE); NITRATE,URINE Negative (NEGATIVE); OCCULT BLOOD,URINE Negative (NEGATIVE); PROTEIN,URINE 300 mg/dL (NEGATIVE); UROBILINOGEN,URINE 0.2 mg/dL (0.2-1.0)
[2021-02-28 01:17] LABS: RBC,URINE None Seen /HPF (0-1); WBC,URINE 0-1 /HPF (0-1)
[2021-02-28 01:21] LABS: BACTERIA,URINE None Seen /HPF (None Seen); SQUAMOUS EPITHELIAL CELL,UR Few /HPF (0-2)
[2021-02-28] MEDS ORDERED: ZOLPIDEM TARTRATE 5 MG TAB PO PRN (02:00)
[2021-02-28] MEDS ORDERED: ONDANSETRON HCL 4 MG/2 ML VIAL IV PRN (02:00)
[2021-02-28] MEDS ORDERED: HYDROCODONE/ACETAMINOPHEN 5/325 MG TAB PO PRN (02:00)
[2021-02-28] MEDS ORDERED: GUAIFENESIN-DM 200/20 MG 10 ML PO PRN (02:00)
[2021-02-28] MEDS ORDERED: MAG HYDROX/AL HYDROX/SIMETH ES 30 ML SUSP UDCUP PO PRN (02:00)
[2021-02-28] MEDS ORDERED: LACTULOSE 20 GM/30 ML UDCUP PO PRN (02:00)
[2021-02-28] MEDS ORDERED: NITROGLYCERIN 0.4 MG SL TAB SL PRN (02:00)
[2021-02-28] MEDS ORDERED: ACETAMINOPHEN 325 MG TAB PO PRN ×2 (02:00)
[2021-02-28] MEDS ORDERED: MORPHINE 2 MG SYG (2MG/1ML) IV PRN (02:00)
[2021-02-28] MEDS: NITROGLYCERIN 1GM/1 INCH PACKET TD SCH ×2 (03:04→09:20)
[2021-02-28] MEDS ORDERED: FURO20TA4 PO (05:35)
[2021-02-28] MEDS ORDERED: VITAD50000 PO (05:35)
[2021-02-28] MEDS ORDERED: AMLO-257 PO (06:06)
[2021-02-28] MEDS ORDERED: HYDR-4153 PO (06:06)
[2021-02-28] MEDS ORDERED: FISH1CAP50 PO (06:06)
[2021-02-28] MEDS ORDERED: FERR-82 PO (06:06)
[2021-02-28 06:10] LABS: BASOPHILS % (AUTO) 0.2 % (0.0-5.0); EOSINOPHILS % (AUTO) 1.9 % (0.0-8.0); HEMATOCRIT 25.8 % (36-48); LYMPHOCYTES % (AUTO) 22.1 % (21.0-51.0); MEAN CORPUSCULAR HEMOGLOBIN 28.1 pg (27.0-33.0); MEAN CORPUSCULAR HGB CONC 34.5 g/dL (32.0-36.0); MEAN CORPUSCULAR VOLUME 81.4 fL (79-99); MONOCYTES % (AUTO) 7.1 % (3.0-13.0); NEUTROPHILS % (AUTO) 68.3 % (40.0-77.0); PLATELET COUNT (AUTO) 299 K/uL (130-400); RED BLOOD CELL COUNT(AUTO) 3.17 MIL/uL (4.00-5.50); RED CELL DISTRIBUTION WIDTH 14.7 % (11.0-15.5); WHITE BLOOD COUNT (AUTO) 8.4 K/uL (4.8-10.8)
[2021-02-28 06:20] LABS: POTASSIUM 4.3 mmol/L (3.5-5.1)
[2021-02-28 06:36] LABS: ALBUMIN 2.8 g/dL (3.5-5.0); BILIRUBIN,TOTAL 0.2 mg/dL (0.2-1.0); CREATININE 2.2 mg/dL (0.5-1.5); TOTAL PROTEIN, SERUM 6.1 g/dL (6.0-8.3)
[2021-02-28] MEDS ORDERED: ASPIRIN 325 MG TABLET PO SCH ×2 (09:00)
[2021-02-28] MEDS ORDERED: ENOXAPARIN SODIUM 40 MG/0.4 ML SYRINGE SQ SCH (09:00)
[2021-02-28] MEDS ORDERED: FAMOTIDINE/PF 20 MG/2 ML VIAL IV SCH (09:00)
[2021-02-28] MEDS: LOSARTAN 50 MG TABLET PO SCH (09:15)
[2021-02-28] MEDS: FUROSEMIDE 20 MG TABLET PO SCH (09:15)
[2021-02-28] MEDS: INSULIN GLARGINE 100 UNITS/ML 10 ML VIAL SQ SCH (09:16)
[2021-02-28 10:45] LABS: CREATINE KINASE, TOTAL 74 U/L (21-232); MYOGLOBIN 107 ng/mL (10-92); TROPONIN I < 0.04 ng/mL (0.00-0.06)
[2021-02-28] MEDS: INSULIN HUMULIN R 100 UNIT/ML 3ML SQ SCH ×3 (11:30→20:22)
[2021-02-28] MEDS ORDERED: CLOPIDOGREL BISULFATE 300 MG TAB PO SCH (13:15)
[2021-02-28] MEDS ORDERED: SODIUM CHLORIDE 0.9% 1000ML 1,000 ML IV ONE (13:46)
[2021-02-28] MEDS: SODIUM CHLORIDE 0.9% 1000ML 1,000 ML IV SCH (13:53)
[2021-02-28] MEDS: ISOSORBIDE MONO 30MG TAB SR PO SCH (13:53)
[2021-02-28] MEDS: METOPROLOL SUCCINATE 50 MG TAB.SR.24H PO SCH (13:54)
[2021-02-28] MEDS ORDERED: ENOXAPARIN SODIUM 80 MG/0.8 ML SQ SCH (15:59)
[2021-02-28] MEDS ORDERED: INSULIN GLARGINE 100 UNITS/ML 10 ML VIAL SQ SCH ×2 (21:00)
[2021-02-28] MEDS ORDERED: ATORVASTATIN CALCIUM 20 MG TABLET PO SCH (21:00)
[2021-03-01 00:04] VITALS: BP 118/56
[2021-03-01] MEDS: SODIUM CHLORIDE 0.9% 1000ML 1,000 ML IV SCH ×2 (00:10→08:18)
[2021-03-01 04:08] VITALS: BP 156/72
[2021-03-01 04:26] LABS: HEMATOCRIT 27.5 % (36-48); MEAN CORPUSCULAR HEMOGLOBIN 27.3 pg (27.0-33.0); MEAN CORPUSCULAR HGB CONC 33.5 g/dL (32.0-36.0); MEAN CORPUSCULAR VOLUME 81.6 fL (79-99); RED BLOOD CELL COUNT(AUTO) 3.37 MIL/uL (4.00-5.50); RED CELL DISTRIBUTION WIDTH 14.9 % (11.0-15.5); WHITE BLOOD COUNT (AUTO) 6.6 K/uL (4.8-10.8)
[2021-03-01 04:58] LABS: CREATININE 2.2 mg/dL (0.5-1.5); POTASSIUM 4.1 mmol/L (3.5-5.1)
[2021-03-01] MEDS: INSULIN HUMULIN R 100 UNIT/ML 3ML SQ SCH (05:33)
[2021-03-01 07:00] VITALS: BP 123/71
[2021-03-01] MEDS: FUROSEMIDE 20 MG TABLET PO SCH (08:11)
[2021-03-01] MEDS: ISOSORBIDE MONO 30MG TAB SR PO SCH (08:12)
[2021-03-01] MEDS: METOPROLOL SUCCINATE 50 MG TAB.SR.24H PO SCH (08:12)
[2021-03-01] MEDS: LOSARTAN 50 MG TABLET PO SCH (08:12)
[2021-03-01] MEDS: INSULIN GLARGINE 100 UNITS/ML 10 ML VIAL SQ SCH (08:18)
[2021-03-01] MEDS ORDERED: FAMOTIDINE 20MG TAB 20 MG TAB PO SCH (09:00)
[2021-03-01] MEDS ORDERED: CLOPIDOGREL BISULFATE 75 MG TAB PO SCH (09:00)
[2021-03-01] MEDS ORDERED: ENOXAPARIN SODIUM 80 MG/0.8 ML SQ SCH (09:00)
[2021-03-01] MEDS ORDERED: ASPIRIN 81MG TAB.CHEW PO SCH (09:00)
[2021-03-01] MEDS ORDERED: FERROUS SULFATE 325 MG TABLET.DR PO SCH (09:00)
[2021-03-01 11:00] VITALS: BP 123/71
[2021-03-01] MEDS ORDERED: Isosorbide Mono 30MG Tab Sr PO (11:36)
[2021-03-01] MEDS ORDERED: CLOP75TA14 PO (11:36)
== END 2021-03-01 13:30 | disposition home or self-care (01) ==
LOC: EDH 23:40 → EDHIP 02-28 01:54 → 4DH 02-28 06:20
PROVIDERS: ADMIT Internal Medicine Critical Care Medicine; ATTEND Internal Medicine Critical Care Medicine
DX: I20.0 Unstable angina (principal); I25.2 Old myocardial infarction; I13.0 Hypertensive heart and chronic kidney disease with heart failure and stage 1 through stage 4 chronic kidney disease, or unspecified chronic kidney disease; E11.22 Type 2 diabetes mellitus with diabetic chronic kidney disease; I50.9 Heart failure, unspecified; I21.A1 Myocardial infarction type 2; K21.9 Gastro-esophageal reflux disease without esophagitis; M19.90 Unspecified osteoarthritis, unspecified site; Z86.16 Personal history of COVID-19; N18.4 Chronic kidney disease, stage 4 (severe); E78.5 Hyperlipidemia, unspecified; J96.00 Acute respiratory failure, unspecified whether with hypoxia or hypercapnia; E78.00 Pure hypercholesterolemia, unspecified; Z79.02 Long term (current) use of antithrombotics/antiplatelets; Z79.4 Long term (current) use of insulin; Z79.82 Long term (current) use of aspirin; Z79.899 Other long term (current) drug therapy
CPT/HCPCS: 36415 ×3; 71045 ×2; 80048; 80053 ×2; 81001; 82550 ×2; 82948 ×6; 83874; 83880 ×2; 84145; 84484 ×3; 85025 ×2; 85027; 85610; 85730; 93005 ×3; 96361 ×2; 96372; 96374; 97161; 99285; G0378 ×35; G8978; G8979; G8980; G8981; G8982; G8983; J1650 ×2; J1815 ×2; J3490; J7030 ×3

== ENCOUNTER 2021-03-21 22:25 | Emergency (ER) | payer OTHER ==
[~2021-03-21] VITALS: Ht 160 cm; Wt 81.6 kg
[~2021-03-21 22:25] MED LIST changes: +AMLO-257 PO; +CLOP75TA14 PO; +FERR-82 PO; +FISH1CAP50 PO; +FURO20TA4 PO; +Isosorbide Mono 30MG Tab Sr PO; +VITAD50000 PO
[2021-03-21 23:10] VITALS: BP 137/68
[2021-03-21 23:38] LABS: BASOPHILS % (AUTO) 0.3 % (0.0-5.0); EOSINOPHILS % (AUTO) 1.6 % (0.0-8.0); LYMPHOCYTES % (AUTO) 14.3 % (21.0-51.0); MEAN CORPUSCULAR HEMOGLOBIN 28.6 pg (27.0-33.0); MEAN CORPUSCULAR HGB CONC 34.6 g/dL (32.0-36.0); MEAN CORPUSCULAR VOLUME 82.6 fL (79-99); MONOCYTES % (AUTO) 5.3 % (3.0-13.0); PLATELET COUNT (AUTO) 273 K/uL (130-400); RED BLOOD CELL COUNT(AUTO) 3.39 MIL/uL (4.00-5.50); WHITE BLOOD COUNT (AUTO) 10.8 K/uL (4.8-10.8)
[2021-03-21] MEDS ORDERED: ONDANSETRON ODT 4MG TAB SL ONE (23:45)
[2021-03-21] MEDS ORDERED: NITROGLYCERIN 1GM OINT 1 INCH/1GM TD ONE (23:45)
[2021-03-21] MEDS ORDERED: MAG/ALUM/SIMETH 30 ML UDCUP PO ONE (23:45)
[2021-03-21 23:50] LABS: CREATININE 2.1 mg/dL (0.5-1.5); POTASSIUM 4.4 mmol/L (3.5-5.1)
[2021-03-21 23:54] LABS: ALBUMIN 3.1 g/dL (3.5-5.0); BILIRUBIN,TOTAL 0.3 mg/dL (0.2-1.0); TOTAL PROTEIN, SERUM 7.1 g/dL (6.0-8.3)
[2021-03-22] MEDS ORDERED: LIDOCAINE HCL 2% VISCOUS 15 ML UDCUP ONE (00:45)
[2021-03-22 01:03] VITALS: BP 157/74
[2021-03-22] MEDS ORDERED: SUCR1TAB28 PO (04:17)
[2021-03-22 05:20] VITALS: BP 108/64
== END 2021-03-22 05:07 | disposition home or self-care (01) ==
LOC: EDH 22:25
DX: R10.13 Epigastric pain (principal); I20.8 Other forms of angina pectoris; I11.0 Hypertensive heart disease with heart failure; I50.9 Heart failure, unspecified; M19.90 Unspecified osteoarthritis, unspecified site; E78.00 Pure hypercholesterolemia, unspecified; E11.9 Type 2 diabetes mellitus without complications; K21.9 Gastro-esophageal reflux disease without esophagitis; Z88.8 Allergy status to other drugs, medicaments and biological substances; Z98.890 Other specified postprocedural states
CPT/HCPCS: 36415; 71045; 80053; 82550; 83690; 84484; 85025; 93005

== ENCOUNTER 2021-03-23 23:53 | Emergency (ER) | payer OTHER ==
[~2021-03-23 23:53] MED LIST changes: +SUCR1TAB28 PO
[2021-03-24 00:05] VITALS: BP 119/51
[2021-03-24] MEDS ORDERED: FAMOTIDINE 20MG VIAL IV ONE ×2 (00:45→01:05)
[2021-03-24 00:51] LABS: BASOPHILS % (AUTO) 0.5 % (0.0-5.0); EOSINOPHILS % (AUTO) 1.7 % (0.0-8.0); HEMATOCRIT 25.6 % (36-48); LYMPHOCYTES % (AUTO) 20.5 % (21.0-51.0); MEAN CORPUSCULAR HEMOGLOBIN 28.5 pg (27.0-33.0); MEAN CORPUSCULAR HGB CONC 34.4 g/dL (32.0-36.0); MEAN CORPUSCULAR VOLUME 82.8 fL (79-99); MONOCYTES % (AUTO) 6.4 % (3.0-13.0); NEUTROPHILS % (AUTO) 70.6 % (40.0-77.0); PLATELET COUNT (AUTO) 288 K/uL (130-400); RED BLOOD CELL COUNT(AUTO) 3.09 MIL/uL (4.00-5.50); RED CELL DISTRIBUTION WIDTH 15.1 % (11.0-15.5); WHITE BLOOD COUNT (AUTO) 7.5 K/uL (4.8-10.8)
[2021-03-24 00:54] LABS: CREATININE 2.2 mg/dL (0.5-1.5); POTASSIUM 4.9 mmol/L (3.5-5.1)
[2021-03-24 00:59] LABS: ALBUMIN 2.9 g/dL (3.5-5.0); BILIRUBIN,TOTAL 0.3 mg/dL (0.2-1.0); TOTAL PROTEIN, SERUM 6.7 g/dL (6.0-8.3)
[2021-03-24] MEDS ORDERED: FAMO-136 PO (01:54)
[2021-03-24 02:14] VITALS: BP 129/55
[2021-03-25] MEDS ORDERED: FOLI1TAB61 PO (08:18)
[2021-03-26] MEDS ORDERED: ROSU5TAB12 PO (08:35)
[2021-03-26] MEDS ORDERED: LOSA50TA64 PO (08:35)
== END 2021-03-24 02:33 | disposition home or self-care (01) ==
LOC: EDH 23:53
DX: F41.9 Anxiety disorder, unspecified (principal); R07.89 Other chest pain; E11.9 Type 2 diabetes mellitus without complications; I10 Essential (primary) hypertension; E78.5 Hyperlipidemia, unspecified; Z88.8 Allergy status to other drugs, medicaments and biological substances; Z79.899 Other long term (current) drug therapy
CPT/HCPCS: 36415; 80053; 84484; 85025; 93005; 96374; 99284; J3490

== ENCOUNTER 2021-07-28 20:57 | Emergency (ER) | payer OTHER ==
[~2021-07-28] VITALS: Ht 160 cm; Wt 87.1 kg
[~2021-07-28 20:57] MED LIST changes: -AMLO-258 PO; -ATOR20TA65 PO; +FOLI1TAB61 PO; -FURO20TA4 PO; -Isosorbide Mono 30MG Tab Sr PO; +ROSU5TAB12 PO
[2021-07-28 21:39] LABS: BASOPHILS % (AUTO) 0.4 % (0.0-5.0); EOSINOPHILS % (AUTO) 1.8 % (0.0-8.0); HEMATOCRIT 28.7 % (36-48); LYMPHOCYTES % (AUTO) 10.9 % (21.0-51.0); MEAN CORPUSCULAR HEMOGLOBIN 28.7 pg (27.0-33.0); MEAN CORPUSCULAR HGB CONC 34.1 g/dL (32.0-36.0); MEAN CORPUSCULAR VOLUME 83.9 fL (79-99); NEUTROPHILS % (AUTO) 82.5 % (40.0-77.0); PLATELET COUNT (AUTO) 341 K/uL (130-400); RED BLOOD CELL COUNT(AUTO) 3.42 MIL/uL (4.00-5.50); RED CELL DISTRIBUTION WIDTH 13.5 % (11.0-15.5); WHITE BLOOD COUNT (AUTO) 11.2 K/uL (4.8-10.8)
[2021-07-28 21:53] LABS: CREATININE 2.4 mg/dL (0.5-1.5); POTASSIUM 4.6 mmol/L (3.5-5.1)
[2021-07-28 21:57] LABS: ALBUMIN 2.7 g/dL (3.5-5.0); BILIRUBIN,TOTAL 0.3 mg/dL (0.2-1.0); TOTAL PROTEIN, SERUM 7.4 g/dL (6.0-8.3)
[2021-07-29 00:23] VITALS: BP 142/72
== END 2021-07-29 00:25 | disposition home or self-care (01) ==
LOC: EDH 20:57
DX: I10 Essential (primary) hypertension (principal); F41.9 Anxiety disorder, unspecified; N19 Unspecified kidney failure; E11.9 Type 2 diabetes mellitus without complications; E78.00 Pure hypercholesterolemia, unspecified; Z79.4 Long term (current) use of insulin; Z79.82 Long term (current) use of aspirin; Z79.899 Other long term (current) drug therapy; Z95.1 Presence of aortocoronary bypass graft; Z88.8 Allergy status to other drugs, medicaments and biological substances
CPT/HCPCS: 36415; 71045; 80053; 84484; 85025; 93005

== ENCOUNTER 2021-09-19 08:18 | Day surgery (SDC) | payer OTHER ==
[~2021-09-19] VITALS: Ht 160 cm; Wt 84.4 kg
[~2021-09-19 08:18] MED LIST changes: +0.9%NACL 1000ML 1,000 ML IV ONE
[2021-09-19 08:49] VITALS: BP 128/64
[2021-09-19] MEDS ORDERED: ATOR40TA71 PO (09:09)
[2021-09-19] MEDS ORDERED: CARV25TA PO (09:09)
[2021-09-19] MEDS ORDERED: FISH1CAP27 PO (09:09)
[2021-09-19] MEDS ORDERED: ASPI-1443 PO (09:09)
[2021-09-19] MEDS ORDERED: renavite PO (09:09)
[2021-09-19] MEDS ORDERED: TICA90TA PO (09:09)
[2021-09-19] MEDS ORDERED: MECL-160 PO (09:09)
[2021-09-19] MEDS ORDERED: FERR-82 PO (09:09)
[2021-09-19] MEDS ORDERED: INSU100V12 SQ ×2 (09:09)
[2021-09-19] MEDS ORDERED: INSU100I3 SQ (09:09)
[2021-09-19] MEDS ORDERED: FURO20TA4 PO (09:09)
[2021-09-19] MEDS ORDERED: AMLO-258 PO (09:09)
[2021-09-19] MEDS ORDERED: PROPOFOL 10 MG/ML 20ML VIAL IV ONE (09:33)
[2021-09-19 09:45] VITALS: BP 109/50
[2021-09-19 09:50] VITALS: BP 113/43
[2021-09-19 09:55] VITALS: BP 117/50
[2021-09-19 10:10] VITALS: BP 123/53
== END 2021-09-19 10:10 | disposition home or self-care (01) ==
LOC: DAH 08:18
PROVIDERS: ATTEND Internal Medicine Gastroenterology
DX: R93.3 Abnormal findings on diagnostic imaging of other parts of digestive tract (principal); Z20.822 Contact with and (suspected) exposure to COVID-19; K86.89 Other specified diseases of pancreas; K57.10 Diverticulosis of small intestine without perforation or abscess without bleeding; K21.9 Gastro-esophageal reflux disease without esophagitis; K76.0 Fatty (change of) liver, not elsewhere classified; E11.9 Type 2 diabetes mellitus without complications; I11.0 Hypertensive heart disease with heart failure; I25.10 Atherosclerotic heart disease of native coronary artery without angina pectoris; I50.9 Heart failure, unspecified; E78.5 Hyperlipidemia, unspecified; E03.9 Hypothyroidism, unspecified; Z90.49 Acquired absence of other specified parts of digestive tract; Z95.5 Presence of coronary angioplasty implant and graft; Z98.890 Other specified postprocedural states
CPT/HCPCS: 43259; 82948; 87635; 93005 ×2; A4215 ×2; A4221; A4222; A4223; A4606; A4620; A4663; C9803; J2704; J7030